=== PATIENT | female | born 1970 | race African-American/Black ===

== ENCOUNTER 2016-11-10 02:37 | Inpatient (IN) | payer OTHER, MEDICARE ==
[~2016-11-10] VITALS: Ht 151.1 cm; Wt 68.0 kg
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
--- NOTE | 2016-11-10 03:10 | NUR ---
PATIENT EVALUATED BY MD GUERIN.
--- NOTE | 2016-11-10 03:30 | NUR ---
LABS DRAWN VIA RCW PORT. DEACCESSED AFTER LAB DRAW,
[2016-11-10 04:00] LABS: ABSOLUTE BASOPHIL COUNT 0 /CUMM (0.0-0.2); ABSOLUTE EOSINOPHIL COUNT 0 /CUMM (0.0-0.7); ABSOLUTE GRANULOCYTE CT 8.6 /CUMM (1.4-6.5); ABSOLUTE LYMPH COUNT 3.5 /CUMM (1.2-3.4); ABSOLUTE MONOCYTE COUNT 0.1 /CUMM (0.10-0.60); BASOPHIL % 0.4 % (0.0-2.0); EOSINOPHIL % 0.3 % (0-5); HEMATOCRIT 32.2 % (37-47); MEAN CORPUSCULAR HGB CONC 33.2 G/DL (33.0-37.0); MEAN CORPUSCULAR VOLUME 99.4 FL (81.0-99.0); MEAN PLATELET VOLUME 7.7 FL (7.4-10.4); PLATELET COUNT 222 /CUMM (130-400); RBC DISTRIBUTION WIDTH 14.9 % (11.5-14.5); RED BLOOD CELL CT 3.24 /CUMM (4.20-5.40); WHITE BLOOD CELL COUNT 12.3 /CUMM (4.8-10.8)
[2016-11-10 04:01] LABS: GRANULOCYTE % 69.9 % (42.2-75.2)
--- NOTE | 2016-11-10 05:01 | NUR ---
PATIENT RESTING COMFORTABLY ON STRETCHER W/ FAMILY AT BEDSIDE. PATIENT REMAINS UNABLE TO OBTAIN URINE SPECIMEN AT THIS TIME. SITTER REMAINS W/ PATIENT.
--- NOTE | 2016-11-10 06:58 | NUR ---
PATIENT CONTINUES TO SLEEP AT THIS TIME. FAMILY REMAINS AT BEDSIDE. SITTER REMAINS W/ PATIENT.
--- NOTE | 2016-11-10 07:30 | NUR ---
ASSUMED CARE, EATING BREAKFAST, SITTER IN ATTENDANCE.
--- NOTE | 2016-11-10 08:40 | NUR ---
URINE TOX SCREEN SENT, (URINE TRIO).
--- NOTE | 2016-11-10 09:00 | NUR ---
PT AND VISITOR AWARE OF WAIT FOR CRISIS CONSULT.
--- NOTE | 2016-11-10 12:48 | NUR ---
MEDICATED FOR PAIN "ALL OVER" WITH PERCOCET 5 MG. PO.
--- NOTE | 2016-11-10 13:15 | NUR ---
PT STANDS AND PIVOTS WITH ASSIST TO WHEELCHAIR FOR CHANGING AND WANDING
--- NOTE | 2016-11-10 13:44 | NUR ---
PT INCREASING IN FRUSTRATION DUE TO EXTREMELY HIGH VOLUME IN ED AND WITH PSYCHIATRIC PATIENTS NEEDING CONSULTS AND THAT SHE HAS NOT BEEN SEEN YET. BOTH CRISIS CLINICIANS AWARE OF HER CONCERNS
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
[2016-11-10] MEDS ORDERED: DIAZEPAM5 M1 PO (16:26)
[2016-11-10] MEDS ORDERED: BACLOFEN10 M1 PO (16:26)
[2016-11-10] MEDS ORDERED: CARISOPRODOL350 M1 (16:27)
[2016-11-10] MEDS ORDERED: PREDNISONE10 M2 PO (16:27)
[2016-11-10] MEDS ORDERED: VITAMIN B-121000 MC3 PO (16:28)
[2016-11-10] MEDS ORDERED: VITAMIN D250000 UNIT PO (16:28)
[2016-11-10] MEDS ORDERED: OXYCODONE-ACET1 EACH PO (16:28)
[2016-11-10] MEDS ORDERED: ZOLPIDEM TARTRA10 M1 PO (16:28)
[2016-11-10] MEDS ORDERED: AMLODIPINE BESYL5 M1 PO (16:29)
[2016-11-10] MEDS ORDERED: TYSABRI300 MG/15 IV (16:30)
--- NOTE | 2016-11-10 16:53 | NUR ---
PHARMACY CALLED FOR VITAMIN D
--- NOTE | 2016-11-10 17:01 | NUR ---
ATTEMPTED TO GIVE PT VITAMIN D PER EMAR, PT SLEEPING QUIETLY AT THIS TIME, WILL ATTEMPT AGAIN WHEN PT IS AWAKE
--- NOTE | 2016-11-10 17:30 | NUR ---
PT NOT MEDICATED WITH VITAMIN D, STATES THAT SHE TAKES 5000U ONCE PER WEEK AND LAST DOSE WAS YESTERDAY. PT INFORMED OF PLAN TO GO DOWN TO [facility]PS SHORTLY ONCE REPORT HAS BEEN GIVEN
--- NOTE | 2016-11-10 17:37 | NUR ---
REPORT GIVEN TO RECEIVING RN AND DISTRIBUTION CALLED
[2016-11-10 18:24] VITALS: BP 128/81
[2016-11-10 19:51] VITALS: BP 138/89
--- NOTE | 2016-11-10 21:29 | NUR ---
PT HAS BEEN VISIBLE IN THE COMMUNITY INTERACTING WITH PEERS AND STAFF. PT SEEMS A LITTLE UNEASY ASKING A LOT OF QUESTIONS ABOUT UNIT. PT DID NOT ATTEND GROUP WRAPUP MEETING. PT OFFERS NO COMPLAINTS AT THIS TIME. PT IS IN A STABLE MOOD AND DENIES SI THOUGHTS AT THIS TIME.
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
--- NOTE | 2016-11-11 05:37 | NUR ---
PT APPEARED TO SLEEP WELL AFTER PRNs VICODIN 5 AND TRAZADONE 50 AT 2300.
[2016-11-11 08:10] VITALS: BP 143/105
[2016-11-11 12:06] VITALS: BP 118/96
--- NOTE | 2016-11-11 12:58 | SOCIAL WORKER PROG NOTE PSYCH ---
Social Work Progress Note Progress Note SW met with patient for the first time today. Patient presented somewhat irritable, tearful at times and reporting ongoing feelings of hopelessness, helplessness and sadness. Patient shared a great amount with this marketing underwriter about current and past family discord that has ultimately lead up to this admission and thoughts of SI. Patient reports that she has experienced numerous losses in her life and feels that things just won't get any better. Patient has a lengthy hx of medical issues that also impact her mental health and make her feel hopeless. Patient reports that her partner, Flaca Ayon, resides with her and is her primary support/distribution center administrator. Patient reports that she feels badly that Hope has to take care of her and she does not feel like a good partner to [facility]. Patient reports that recently she was attending OP treatment at [facility] and was attending their weekly anxiety group. She wishes to continue in this group going forward and does not believe she can manage IOP due to her medical conditions.
--- NOTE | 2016-11-11 13:57 | History & Physical ---
General Information and HPI MD Statement: I have seen and personally examined JESS BALTAZAR and documented this H&P. The patient is a 46 year old F who presented with a patient stated chief complaint of severe depression and suicidal ideation.. Source of Information: patient Exam Limitations: clinical condition (COMPLICATED HISTORY) History of Present Illness: The patient is a 46 yo female with h/o MS, depression, bipolar disorder, PTSD who presented in the ED with complaint of increased depression and suicidal ideation. She stated that she has had significant increase in spasm and thus increase in her usual neurologic medications (sees Neurology in [place]) including Baclofen, Valium, Soma, etc. She describes numerous stressors, including financial difficulties. At the time of my exam she appeared frustrated as she had not received all of her usual medication. She had been placed on a Prednisone taper by Neurology and took 40 mg yesterday and 30 mg today as per her taper schedule. She recently had Baclofen increased to qid (was tid on bottle). Also taking Soma, Valium, Ambien, B12, & Vit D. She does have some chronic abdominal pain (has had multiple surgeries) that is not significantly different than usual. Denies dyspnea, chest pain, palpitations , or significant change in her neurologic status. She was in her wheelchair at the time of my exam. Her prior MS care had been with Neurologist here ([facility] ), however now is seen in [place] where she lives. Allergies/Medications Allergies: Coded Allergies: Penicillins (Intermediate, RASH 11/10/16) lamotrigine (Intermediate, RASH 11/10/16) silver (From TEGADERM AG MESH) (RASH STAINS SKIN 11/10/16) talc (RASH, STAINS SKIN PER PT 11/10/16) Home Med list Baclofen 10 MG TABLET 1 TAB PO 4 TIMES/DAY PRN MUSCLE SPASMS (Reported) Cyanocobalamin (Vitamin B-12) 1,000 MCG TABLET 1 TAB PO DAILY SUPPLEMENT ( Reported) Diazepam 5 MG TABLET 1 TAB PO BID PRN MUSCLE SPASMS (Reported) Ergocalciferol (Vitamin D2) (Vitamin D2) 50,000 UNIT CAPSULE 1 CAP PO QSUN SUPPLEMENT (Reported) Natalizumab (Tysabri) (Unknown Strength) VIAL (Unknown Dose) IV Q4W MS ( Reported) Oxycodone HCl/Acetaminophen (Oxycodone-Acetaminophen 5-325) 5 MG-325 MG TABLET 1 TAB PO TIDPRN PRN PAIN (Reported) Prednisone (Unknown Strength) TABLET (Unknown Dose) PO AD STEROID TAPER ( Reported) Zolpidem Tartrate 10 MG TABLET 1 TAB PO QPM SLEEP (Reported) Compliance With Home Meds: GOOD Past History Travel History Traveled to [place] past 21 day No Medical History Neurological: multiple sclerosis EENT: NONE Cardiovascular: NONE Respiratory: asthma, obstructive sleep apnea (WAS ON CPAP-GETTING MOUTH ROBERT) Gastrointestinal: GERD, irritable bowel syndrome Hepatic: NONE Renal: NONE Musculoskeletal: chronic back pain, sciatica, DEGENERATIVE DISC DISEASE BULGING CERVICAL SPINE BURSITIS HIPS Psychiatric: anxiety, bipolar disease, depression, insomnia, substance abuse, PTSD Endocrine: hypothyroidism Blood Disorders: LEUKOCYTOSIS Cancer(s): NONE SUPERINTENDENT NONSELLING/Reproductive: miscarriage History of MRSA: No History of VRE: No History of CDIFF: No Isolation History: Standard Surgical History Surgical History: appendectomy, tubal ligation, ECTOPIC , TEMPORARY COLOSTOMY Past Family/Social History Family History Relations & Conditions if any MOTHER (MOTHER - NON-SMALL CELL LUNG CA, COPD). . FATHER (FATHER WITH H/O DM- ). . SISTER (SISTER WITH CIRRHOSIS). Psychosocial History Where do you live? Home Primary Language: Vietnamese ETOH Use: denies use Illicit Drug Use: marijuana (MEDICAL MARIJUANA CARD) Functional Ability Ambulation: WHEELCHAIR Employment History Employment Disability Profession/Employer N/A Review of Systems Review of Systems Constitutional: Denies: no symptoms. EENTM: Denies: no symptoms. Cardiovascular: Denies: no symptoms. Respiratory: Denies: no symptoms. GI: Reports: abdominal pain (MILD PAIN/IBS), constipation. Genitourinary: Denies: no symptoms. Musculoskeletal: Reports: back pain. Skin: Denies: no symptoms. Neurological/Psychological: Reports: anxiety, depressed. Hematologic/Endocrine: Denies: no symptoms. Immunologic/Allergic: Denies: no symptoms. Exam & Diagnostic Data Last 24 Hrs of Vital Signs/I&O Vital Signs Date Time Temp Pulse Resp B/P Pulse O2 O2 Flow FiO2 Ox Delivery Rate 11/12 0747 96.8 66 150/96 11/11 1942 96.5 78 143/98 11/11 1605 77 134/89 11/11 1206 71 118/96 Physical Exam General Appearance Alert, Oriented X3, Cooperative, No Acute Distress Skin No Rashes, No Breakdown, No Significant Lesion HEENT Atraumatic, PERRLA, EOMI, Mucous Membr. moist/pink Neck Supple, No JVD, No thryomegaly, +2 Carotid Pulse wo Bruit, No LAD Cardiovascular Regular Rate, Normal S1, Normal S2, No Murmurs Lungs Clear to Auscultation, Normal Air Movement Abdomen Normal Bowel Sounds, Soft, MINIMAL TENDER W/O GUARD/RAGHU Neurological Exam Findings: Normal Speech (DIMINISHED MOTOR UE/LE MS), Cranial Nerves 3-12 NL Cranial Nerves II through XII: INTACT Extremities No Clubbing, No Cyanosis, No Edema, Normal Pulses, No Tenderness/ Swelling Vascular Normal Pulses, Pulses Symmetrical Last 24 Hrs of Labs/Tam: Laboratory Tests 11/10/16 2300: Urine Test NEGATIVE 11/10/16 0830: Urine Opiates Screen < 100.00, Methadone Screen < 40, Barbiturate Screen < 60, Ur Phencyclidine Scrn < 6.00, Amphetamines Screen < 100, U Benzodiazepines Scrn > 800 H, Urine Cocaine Screen < 50, Urine Cannabis Screen > 80.00 H Assessment/Plan Assessment: #Depression/Suicidal Ideation- patient presents with above complaints. Has had increasing doses of medication for muscle spasms secondary to MS (Valium, etc.) that may be contributing along with social stressors. Plan: Admit to [facility]/Psychiatry for evaluation. #Multiple Sclerosis- patient describes increased spasticity which has lead to escalation of doses of meds including Baclofen increased to quid, addition of Valium and Soma. Later are most likely contributing to her depression symptoms. Her Neurologist is in [place] (she has had previous care here in [facility]). Plan: Will continue Baclofen 10 mg qid. Will have to balance other meds as per psych. May need neurology input. #GERD/Irritable Bowel- patient has minimal discomfort at present. Uses Aciphex prn (states not using recently). Has had multiple abdominal surgeries in past and did at one time have temporary colostomy after nicked bowel during a procedure. Plan: Will follow. #Obstructive Sleep Apnea- patient states she was diagnosed with this, however not using CPAP. She is being evaluated for mouth piece alternative for treatment. She does not describe severe symptoms at present. Plan: To be followed up as OP. As Ranked By This Provider Problem List: 1. Depression 2. Bipolar disorder, unspecified 3. Multiple sclerosis 4. GERD (gastroesophageal reflux disease) 5. Obstructive sleep apnea Miscellaneous Miscellaneous Documentation Attending Case Discussed With: SIRI HOSKINS MD Primary Care Physician: PAULA DONOVAN MD Patient sees these Specialists NEUROLOGY IN [place] Level of Patient Care: JULIET D[place] Consults Needed: Consulting Physician: NONE Attending MD Review Statement Attending Statement Attending MD Statement: examined this patient, discussed with nursing, amended to note Attending Assessment/Plan: The patient was seen and examined on 11/11/16.
--- NOTE | 2016-11-11 13:57 | NUR ---
PT DID NOT ATTEND GROUPS THIS MORNING. SHE WAS IRRITABLE AND REPORTED SHE WAS COLD AND IN PAIN.PTS GAIT IS UNSTEADY AND SHE WAS GIVEN A WALKER AND SHE REQUESTED A WHEELCHAIR WHICH SHE WAS GIVEN. PT IS VERY FOCUSED ON HER MEDS AND NEEDED REASSURANCE THAT WE WOULD GET HER MEDS CORRECT TODAY. SHE CALLED HER PARTNER WHO GAVE STAFF A HOME LIST OF MEDS. PT SEEN AND EXAMINED BY DR CANNON FOR H&P. PT DENIED SUICIDAL THOUGHTS AT THIS TIME. SHE IS IN GROUP AT THIS TIME
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
[2016-11-11 16:05] VITALS: BP 134/89
[2016-11-11 19:42] VITALS: BP 143/98
--- NOTE | 2016-11-11 21:47 | NUR ---
PT IS STABLE WITH FULL RANGE OF AFFECT. PT IS EASILY IRRITATED WITH THINGS SUCH HER FOOD NOT BEING COOKED CORRECTLY AND HER SIGNIFICANT OTHER HAVING TO CALL PRIOR TO VISITING DURING NON-VISITING HOURS DUE TO HER WORK SCHEDULE. OTHERWISE PT HAS BEEN APPROPRIATE TO THE UNIT AND COMPLIANT AND COOPERATIVE. PT IS CONSTANTLY APPROACHING THE NURSES STATION DEMANDING THINGS SUCH BLANKETS, ECT. VS ARE STABLE AND PT DENIES SI/HI TO THIS MHW.
--- NOTE | 2016-11-12 04:02 | NUR ---
PT RECEIVED MAALOX AT 0325 FOR INDIGESTION. PT APPEARED TO SLEEP.
[2016-11-12 07:47] VITALS: BP 150/96
--- NOTE | 2016-11-12 11:09 | NUR ---
DR CANNON NOTIFIED OF PTS C/O CONSTIPATION AND NAUSEA. HE IS AWARE OF PTS HX AND STATED HE WILL ADJUST HER MEDICATION ORDERS. HE DOES NOT RECOMMEND XRAY AT THIS TIME
[2016-11-12 12:37] VITALS: BP 140/97
--- NOTE | 2016-11-12 13:58 | CP SOUTH PROGRESS NOTE PSYCH ---
Psych (Inpt) Progress Note Progress Note Progress Note: I discussed this patient's progress to date, current mental status, treatment process in the context of the treatment plan, and discharge planning with staff/ team in the daily morning inpatient team meeting. I also met with the patient myself in individual session. A total of 50 minutes was spent with the patient with more than 50% spent in counseling and/or coordination of care. OBJECTIVE: Current Medications Sig/Charles Start time Last Medication Dose Route Stop Time Status Admin Acetaminophen 650 MG Q6P PRN 11/10 1545 AC PO Al Hydroxide/Mg 30 ML .STK-MED ONE 11/12 0319 DC Hydroxide PO 11/12 0320 Al Hydroxide/Mg 30 ML Q4-6 PRN PRN 11/10 1545 AC 11/12 Hydroxide PO 0325 Aripiprazole 5 MG 0800 11/12 0800 AC 11/12 PO 1006 Baclofen 10 MG 4 TIMES/DAY 11/11 1400 AC 11/12 PO 1006 Bisacodyl 5 MG DAILY PRN 11/12 1115 AC PO Carisoprodol 350 MG Q8P PRN 11/10 1545 AC PO Cholecalciferol 1,000 IU DAILY 11/11 1328 AC PO Cholecalciferol 400 IU DAILY 11/10 1540 DC PO Cyanocobalamin 1,000 MCG DAILY 11/11 1327 AC 11/12 PO 1007 Diazepam 5 MG Q6P PRN 11/10 1545 AC 11/11 PO 2222 Docusate Sodium 100 MG TID 11/12 1600 AC PO Docusate Sodium 100 MG BID 11/12 1109 DC 11/12 PO 1236 Escitalopram Oxalate 10 MG 00 11/12 1315 AC PO Magnesium Hydroxide 30 ML AT BEDTIME PRN 11/10 1545 AC 11/12 PO 1008 Ondansetron HCl 4 MG Q6-PRN PRN 11/12 1315 AC PO Oxycodone/ 1 TAB Q6P PRN 11/10 1545 AC 11/11 Acetaminophen PO 1720 Polyethylene Glycol 17 GM 11/11 1830 DC 11/12 PO 1006 Prednisone 10 MG 0800 11/15 0800 AC PO 11/16 0801 Prednisone 20 MG 0800 11/13 0800 AC PO 11/14 0801 Prednisone 30 MG DAILY 11/11 1000 DC 11/12 PO 11/12 1001 1007 Senna 187 MG AT BEDTIME 11/120 AC PO Trazodone HCl 50 MG AT BEDTIME 11/11 2200 DC 11/11 PO 2223 Trazodone HCl 50 MG AT BEDTIME NEED.. 11/10 1545 DC 11/10 PO 2304 Zolpidem Tartrate 10 MG AT BEDTIME 11/12 220 AC PO Vital Signs Date Time Temp Pulse Resp B/P Pulse O2 O2 Flow FiO2 Ox Delivery Rate 11/12 1237 75 140/97 11/12 0747 96.8 66 150/96 11/11 1942 96.5 78 143/98 11/11 1605 77 134/89 ASSESSMENT: Today I met the patient in a family meeting along with geriatric social work professor Radha and the patient's significant other, Flaca. Patient reports continuing depression and anxiety, although states she is no longer suicidal. Continues to harbor resentment and anger towards her neighbor, is unsure how she would behave in his presence. She identifies mood lability as one of her central problems. Was discontinued from lithium, apparently in November 2015 as per medication claim history. Complaining of continuing constipation. Difficulty sleeping last night, states that at home she uses Ambien, which has beem verified from medication claim history. States that she vomited this morning, does not know which if any of her medications were not ingested due to vomiting. She complains of some residual nausea, requests Zofran which has helped the past. We discussed starting Lexapro for depression and anxiety, Abilify for mood lability and racing thoughts. Patient has agreed to try these medications. Risks, benefits and side effects discussed with patient and her partner. I spoke with the patient's neurology/MS clinician, Berenice Haq APRN (tel: ) who states that Lexapro and Abilify would not interfere with her MS treatment. Ms Haq stated that in her last phone conversation with the patient, she seemed to have "racing thoughts." I placed a call to her psychiatrist, Dr. Hernandez at [facility], [phone], and left a message. His office states that he is out of the office today, and will call back tomorrow. Patient listed numerous upcoming medical appointments including: follow-up with her psychiatrist; evaluation for breast reduction for back pain; following up with a syrup filterer for osteopenia; scheduled MRI for lower extremities bilaterally; regularly scheduled Tysabri infusion on November 24. Patient signed a three-day paper this afternoon. Depression: 8/10; Anxiety: Normal 5/10 (with 10 the worst.) States anxiety is mostly related to pain. Denies suicidal ideation, homicidal ideation, auditory hallucinations, visual hallucinations, paranoid ideation. States and also believes that she will not kill herself. States although she is very angry with her neighbor, and does not intend to cause him harm, she is not sure how she would react if confronted by him. Speech is well articulated, goal-directed, average in rate, volume and tone. The patient understands the risks/benefits/side effects of the medication and is agreeable to continue taking them. PLAN: Low carbohydrate diet. Colace 3 times daily. Zofran as needed for nausea. Lexapro for depression and anxiety. Continue Abilify for mood stability and racing thoughts. Patient complains that she did not sleep last night, reinstate Ambien at bedtime for insomnia. Blood pressure somewhat elevated, continue to monitor. Continue with other current management as patient is improving. Continue to provide support and encouragement.
[2016-11-12 16:28] VITALS: BP 150/98
--- NOTE | 2016-11-12 16:42 | SOCIAL WORKER PROG NOTE PSYCH ---
Social Work Progress Note Progress Note Patient had family meeting today with this typewriter mechanic, Cesar Osborne APRN and patients partner Hope. Patient mostly discussed medical concerns during the meeting and reported that she is having a difficult time addressing her anxiety/ depression due to her thoughts being consumed over her medical concerns. Patient reported that she may consider putting in a 3 day paper today in order to discharge the hospital in the near future. Patient denied any thoughts of hurting herself today and stated that she has been working on ways that she can control her behavior/negative thoughts so that she does not react towards her neighbor in a threatful manner. Patient expressed her deisre to return to treatment at [facility]. She has been discharged from their program due to being admitted here and will need to complete a new evaluation with them. Her new intake is scheduled for 11/21/16 @ 8:30am with Kim Enriquez.
[2016-11-12 19:42] VITALS: BP 119/98
--- NOTE | 2016-11-12 21:26 | NUR ---
PT IS VISIBLE ON UNIT, MAKING PHONE CALLS AND INTERACTING WITH PEERS AT TIMES. MOSTLY STAYED IN BED. PT DID ATTEND WRAP UP MEETING BUT WAS VERY DISRUPTIVE, INTERUPTING PEERS WHILE THEY WERE SHARING. WHEN REDIRECTED PT BECAME VERY ARGUMENTATIVE AND ENTITLED. PT CONSTANTLY HAS A COMPLAINT REGARDING VARIOUS ASPECTS ABOUT THE UNIT(SHAVING, FOOD, TEMPERATURE OF UNIT, ETC). COOPERATIVE WITH STAFF. NO SI REPORTED. PT HAS A STABLE MOOD AND IRRITABLE AFFECT.
--- NOTE | 2016-11-13 04:17 | NUR ---
SLEPT WELL. REPORTS SMALL RESULTS FROM FLEETS ENEMA. REQUEST ANOTHER ONE FOR TODAY.
[2016-11-13 07:46] VITALS: BP 155/98
--- NOTE | 2016-11-13 11:25 | SOCIAL WORKER PROG NOTE PSYCH ---
Social Work Progress Note Progress Note Patient to discharge the hospital today. Patient denies SI/HI/AH/VH at present and is eager to discharge home today. Patient continues to report concern with bowel movement and feels more comfortable at home then in the hospital. Patients partner will pick her up today and they live together. Patient has agreed to return to treatment at [facility]. She has intake next 11/21/16 @ 8:30am with Kim Enriquez. Patient is aware and plans to attend.
[2016-11-13 11:38] VITALS: BP 123/80
[2016-11-13] MEDS ORDERED: DOCUSATE SODIU100 M3 PO (11:59)
--- NOTE | 2016-11-13 11:59 | CP SOUTH PROGRESS NOTE PSYCH ---
Psych (Inpt) Progress Note Progress Note Progress Note: I discussed this patient's progress to date, current mental status, treatment process in the context of the treatment plan, and discharge planning with staff/ team in the daily morning inpatient team meeting. I also met with the patient myself in individual session. A total of 30 minutes was spent with the patient with more than 50% spent in counseling and/or coordination of care. SUBJECTIVE: "I'm happy to leave today." OBJECTIVE: Current Medications Sig/Charles Start time Last Medication Dose Route Stop Time Status Admin Acetaminophen 650 MG Q6P PRN 11/10 1545 AC PO Al Hydroxide/Mg 30 ML Q4-6 PRN PRN 11/10 1545 AC 11/12 Hydroxide PO 0325 Aripiprazole 5 MG 0800 11/12 0800 AC 11/13 PO 0857 Baclofen 10 MG 4 TIMES/DAY 11/11 1400 AC 11/13 PO 0857 Bisacodyl 5 MG DAILY PRN 11/12 1115 AC PO Carisoprodol 350 MG Q8P PRN 11/10 1545 AC PO Cholecalciferol 1,000 IU DAILY 11/11 1328 AC PO Cyanocobalamin 1,000 MCG DAILY 11/11 1327 AC 11/13 PO 0857 Diazepam 5 MG Q6P PRN 11/10 1545 AC 11/13 PO 0857 Docusate Sodium 100 MG TID 11/12 1600 AC 11/13 PO 0857 Docusate Sodium 100 MG BID 11/12 1109 DC 11/12 PO 1236 Escitalopram Oxalate 10 MG 0800 11/12 1315 AC 11/13 PO 1100 Magnesium Hydroxide 30 ML AT BEDTIME PRN 11/10 1545 AC 11/12 PO 1008 Ondansetron HCl 4 MG Q6-PRN PRN 11/12 1315 AC PO Oxycodone/ 1 TAB Q6P PRN 11/10 1545 AC 11/11 Acetaminophen PO 1720 Prednisone 10 MG 0800 11/15 0800 AC PO 11/16 0801 Prednisone 20 MG 0800 11/13 0800 AC 11/13 PO 11/14 0801 0857 Senna 187 MG AT BEDTIME 11/12 2200 AC 11/12 PO 2153 Sodium Phosphate 1 UNIT ONCE ONE 11/13 1100 DC DC 11/13 1101 Sodium Phosphate 1 UNIT ONCE ONE 11/12 1600 DC 02/15 DC 11/12 1601 1854 Trazodone HCl 50 MG AT BEDTIME 11/110 DC 11/11 PO 2223 Zolpidem Tartrate 10 MG AT BEDTIME 11/12 2199 DC PO Zolpidem Tartrate 10 MG AT BEDTIME 11/120 AC 11/12 PO 2156 Vital Signs Date Time Temp Pulse Resp B/P Pulse O2 O2 Flow FiO2 Ox Delivery Rate 11/13 1138 93 123/80 11/13 0746 96.7 73 155/98 11/12 1942 96.7 83 119/98 11/12 1628 75 150/98 11/12 1237 75 140/97 ASSESSMENT: Patient reports some residual sadness, however denies suicidal or homicidal ideation. States that she feels safe and ready for discharge. A second Fleet enema was ordered for this morning, as the patient states she had a small bowel movement after yesterday's Fleet enema, however still feels constipated. Today she is ambulating independently, without assist of wheelchair or walker, with slow but steady gait. Reports tolerating her medications well, without complaint. I spoke with the patient's psychiatrist at [facility], Dr. Hernandez, who did not object to patient being prescribed Lexapro for depression and Abilify for mood stabilization. He believes there is an element of personality disorder involved. He had prescribed [place] in the past, however the patient did not take it. States that she is often nonadherent to treatment. States that she can return to attend IOP at [facility]. Depression:4/10; Anxiety:0/10 (with 10 the worst.) Denies suicidal ideation, homicidal ideation, auditory hallucinations, visual hallucinations, paranoid ideation. Patient states and also believes that she will not kill herself, or harm anyone else. Reports that her sleep is not good, however at her baseline. Her appetite is good and states she is eating too much while here in the hospital. Speech is well articulated, goal-directed, average in rate, volume and tone. The patient understands the risks/benefits/side effects of the medication and is agreeable to continue taking them. PLAN: Discharge today. Will follow-up at [facility] and with her doctors. Continue with current management as patient is improving. Continue to provide support and encouragement.
[2016-11-13] MEDS ORDERED: LEXAPRO10 M1 PO (12:00)
[2016-11-13] MEDS ORDERED: ABILIFY5 M1 PO (12:01)
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
--- NOTE | 2016-11-13 13:39 | NUR ---
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 HAS + UNDERSTANDING OF MEDICATION REGIMENT AND MOTIVATION FOR DISCHARGE FOLLOW-UP TREATMENT AND PLANNING, IDENTIFIED + SUPPORT SYSTEMS AND FEELING READY AND PREPARED FOR DISCHARGE TODAY, TEAM ONBOARD WELL. PT RESOURCE GUIDE REVIEWED ALONG WITH PERTINENT NUMBER I.E., [facility], [facility], SUICIDE HOTLINE, ETC. INFORMATION PACKETS RE: SI AND BIPOLAR GIVEN TO PT WELL.
== END 2016-11-13 13:30 | DRG 885 ==
LOC: ERH 02:37 → ERHI 17:16 → CP SOUTH 17:16
PROVIDERS: Nurse Practitioner Psychiatric/Mental Health; Pediatrics; ADMIT Psychiatry & Neurology Psychiatry
DX: F31.9 Bipolar disorder, unspecified (principal); G35 Multiple sclerosis; F43.10 Post-traumatic stress disorder, unspecified; J45.909 Unspecified asthma, uncomplicated; K21.9 Gastro-esophageal reflux disease without esophagitis; K58.9 Irritable bowel syndrome, unspecified; M54.9 Dorsalgia, unspecified; E03.9 Hypothyroidism, unspecified; D72.829 Elevated white blood cell count, unspecified
CPT/HCPCS: 80307; 81025; 93005; 93010; G0480; J3101; J3360; J7512

== ENCOUNTER 2017-01-06 16:29 | Emergency (ER) | payer OTHER, MEDICARE ==
[~2017-01-06] VITALS: Ht 149.9 cm; Wt 68.5 kg
[~2017-01-06 16:29] MED LIST: ABILIFY5 M1 PO; AMLODIPINE BESYL5 M1 PO; BACLOFEN10 M1 PO; CARISOPRODOL350 M1; DIAZEPAM5 M1 PO; DOCUSATE SODIU100 M3 PO; LEXAPRO10 M1 PO; OXYCODONE-ACET1 EACH PO; PREDNISONE10 M2 PO; TYSABRI300 MG/15 IV; VITAMIN B-121000 MC3 PO; VITAMIN D250000 UNIT PO; ZOLPIDEM TARTRA10 M1 PO
--- NOTE | 2017-01-06 18:04 | ED CARDIAC/CP/PALPITATIONS ---
History of Present Illness General Chief Complaint: Chest Pain Stated Complaint: PT IS HAVING CHEST PAIN AND FINGER TINGLING Source: patient Exam Limitations: no limitations Vital Signs & Intake/Output Vital Signs & Intake/Output Vital Signs Date Time Temp Pulse Resp B/P Pulse O2 O2 Flow FiO2 Ox Delivery Rate 01/06 2119 155/99 01/06 2118 96.2 60 18 156/92 99 Room Air 01/06 1824 97.8 57 20 144/81 99 Room Air 01/06 1646 97.9 60 20 144/86 99 Room Air Allergies Coded Allergies: Penicillins (Intermediate, RASH 01/06/17) duloxetine (From CYMBALTA) (Intermediate, GERD 01/06/17) gabapentin (Intermediate, "STOMACH ISSUES" 01/06/17) lamotrigine (Intermediate, RASH 01/06/17) silver (From TEGADERM AG MESH) (RASH STAINS SKIN 01/06/17) talc (RASH, STAINS SKIN PER PT 01/06/17) Triage Note: TRIAGE: PT TO ER C/C PAIN TO MID CHEST WITH RADIATION INTO RT CHEST. ONSET THURSDAY MORNING, CONSTANT SINCE ONSET. PT ALSO COMPLAINS OF NUMBNESS AND TINGLING DOWN THE RT ARM INTO PINKY AND RING FINGER. ALSO COMPLAINS OF RT HIP TO PELVIS AND DOWN LEG PAIN. ALSO COMPLAINS OF HEAD PAIN. PT TEARFUL AT TRIAGE. HAD EKG DONE IN PONCE PRIOR TO TRIAGE. Triage Nurses Notes Reviewed? yes Onset: Abrupt Duration: day(s):, continues in ED Timing: single episode today Quality/Severity: aching Location: substernal Radiation: no radiation Activities at Onset: none HPI: Patient presents for evaluation of a severe constant right chest pain that began on Thursday. Patient states in addition she is having right arm and hand tingling and numbness. (KARINA VASQUEZ,TAY Torres) Reconcile Medications Amlodipine Besylate (Norvasc) 5 MG TABLET 1 TAB PO DAILY HIGH BLOOD PRESSURE Aripiprazole (Abilify) 5 MG TABLET 5 MG PO 0800 STABLE MOODS Baclofen 10 MG TABLET 1 TAB PO 4 TIMES/DAY PRN MUSCLE SPASMS (Reported) Cyanocobalamin (Vitamin B-12) 1,000 MCG TABLET 1 TAB PO DAILY SUPPLEMENT ( Reported) Diazepam 5 MG TABLET 1 TAB PO BID PRN MUSCLE SPASMS (Reported) Ergocalciferol (Vitamin D2) (Vitamin D2) 50,000 UNIT CAPSULE 1 CAP PO QSUN SUPPLEMENT (Reported) Escitalopram Oxalate (Lexapro) 10 MG TABLET 10 MG PO 0800 Depression and anxiety Magnesium Citrate (Unknown Strength) SOLUTION (Unknown Dose) PO AD PRN GI ( Reported) Natalizumab (Tysabri) (Unknown Strength) VIAL (Unknown Dose) IV Q4W MS ( Reported) Oxycodone HCl/Acetaminophen (Oxycodone-Acetaminophen 5-325) 5 MG-325 MG TABLET 1 TAB PO TIDPRN PRN PAIN (Reported) Polymyxin B Sulf/Trimethoprim (Polymyxin B-Tmp Eye Drops) 10,000 UNIT-1 MG/ML DROPS 1 GTT OPH 4 TIMES/DAY AFFECTED EYE(S) (Reported) Zolpidem Tartrate 10 MG TABLET 1 TAB PO QPM SLEEP (Reported) (TRACY VASQUEZ,KERON Arshad) Past History Travel History Traveled to [place] past 21 day No Medical History Any Pertinent Medical History? 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 . FATHER (FATHER WITH H/O DM- ). . SISTER (SISTER WITH CIRRHOSIS). Hx Contributory? No (KARINA VASQUEZ,TAY Torres) Review of Systems Review of Systems Constitutional: Reports: no symptoms. EENTM: Reports: no symptoms. Respiratory: Reports: no symptoms. Cardiovascular: Reports: chest pain. GI: Reports: no symptoms. Genitourinary: Reports: no symptoms. Musculoskeletal: Reports: see HPI. Skin: Reports: no symptoms. Neurological/Psychological: Reports: no symptoms. Hematologic/Endocrine: Reports: no symptoms. Immunologic/Allergic: Reports: no symptoms. All Other Systems: Reviewed and Negative (KARINA VASQUEZ,TAY Torres) Physical Exam Physical Exam Cardiovascular: see below Comments: Gen.: Well-nourished, well-developed, no acute respiratory distress. Head: Normocephalic, atraumatic. Eyes: Normal inspection bilaterally Ears: Normal inspection bilaterally Nose: Normal inspection Throat/mouth : Moist mucosa Neck: Supple, full range of motion, no goiter Heart: Regular rate and rhythm, no murmurs rubs or gallops Lungs: Clear to auscultation bilaterally with normal air entry Chest: Nontender Back: Normal range of motion Abdomen: Soft, nontender, nondistended, normal bowel sounds Extremities: Normal range of motion grossly, equal radial pulses, no cyanosis clubbing or edema Neurologic: Cranial nerves grossly intact, speech is clear Skin: warm and dry Psychiatric: Calm, cooperative, no apparent delusions or hallucinations, crying at times secondary to pain. (KARINA VASQUEZ,TAY Torres) Core Measures ACS in differential dx? Yes ASA ordered for poss ACS? 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 Unfortunately IV access could not be obtained so the CAT scan has been placed on hold and an ultrasound has been ordered. (KARINA VASQUEZ,TAY Torres) Plan of Care: Orders Procedure Date/time Status US-DEEP VESSEL DOPPLER 01/06 192 Active Telemetry/Assistant Grocery 01/06 180 Active TROPONIN LEVEL 01/06 180 Complete MAGNESIUM 01/06 180 Complete D-DIMER 01/06 180 Complete CBC WITHOUT DIFFERENTIAL 01/06 180 Complete BASIC METABOLIC PANEL 01/06 180 Complete CTA CHEST 01/06 180 Active EKG 01/06 1631 Active Current Medications Sig/Charles Start time Last Medication Dose Stop Time Status Admin Morphine Sulfate 4 MG ONCE ONE 01/06 1945 UNVr (Morphine) 01/06 1946 Laboratory Tests 01/06/171821: Anion Gap 9, Estimated GFR 59 L, BUN/Creatinine Ratio 12.0, Glucose 80, Calcium 9.5, Magnesium 1.7, Troponin I < 0.01, D-Dimer < 200, CBC w Diff NO MAN DIFF REQ , RBC 3.58 L, MCV 99.1 H, MCH 33.0 H, RDW 14.9 H, MPV 7.8, Gran % 31.0 L, Lymphocytes % 61.4 H, Monocytes % 5.3, Eosinophils % 1.5, Basophils % 0.8, Absolute Granulocytes 2.7, Absolute Lymphocytes 5.3 H, Absolute Monocytes 0.5, Absolute Eosinophils 0.1, Absolute Basophils 0.1, PUBS MCHC 33.4 Diagnostic Imaging: Viewed by Me: Radiology Read. Discussed w/RAD: Radiology Read. CXR Impression: PATIENT: JESS BALTAZAR PRESENT AGE: 46 PATIENT ACCOUNT NO: [id number] : 68 LOCATION: [facility] ORDERING PHYSICIAN: KERON NAIR MD SERVICE DATE: 01/06/17 EXAM TYPE: RAD - XRY-CHEST XRAY, PA AND LATERAL EXAMINATION: XR CHEST CLINICAL INFORMATION: Evaluate for wide mediastinum. COMPARISON: None TECHNIQUE: 2 views of the chest were obtained. FINDINGS: Mediastinal contours are normal. A right-sided chest port device is in place. The cardiac silhouette is normal in contour. No airspace opacities or pleural effusions are seen. No acute osseous abnormality is visible. IMPRESSION: Clear lungs. No abnormal widening of the mediastinum. No acute radiographic process. DICTATED BY: KERON CASTAÑEDA MD DATE/TIME DICTATED: 01/06/172152 JAVA JSF DEVELOPER:YAN DATE/TIME TRANSCRIBED:01/06/172152 CONFIDENTIAL, DO NOT COPY WITHOUT APPROPRIATE AUTHORIZATION. <Electronically signed in Other Vendor System> SIGNED BY: KERON CASTAÑEDA MD 01/06/172157 Comments: Unable to obtain IV access. Ultrasound does not show any evidence of a dissection. There is no different in blood pressure reaching right and left arm. Patient has been on Norvasc in the past for her blood pressure however she has been off of it since her primary care physician wanted her neurologist prescribing and her neurologist stated that he did not treat high blood pressure. (KERON NAIR MD) Departure Departure Condition: Stable Departure Forms: Customer Survey General Discharge Information (KARINA VASQUEZ,TAY Torres) Departure Disposition: HOME OR SELF CARE Clinical Impression Primary Impression: Chest pain, unspecified Secondary Impressions: Hypertension Referrals: Cira RICHARDSON MD UNKNOWN (PCP/Family) Additional Instructions: TAKE AMLODIPINE EVERY DAY FOLLOW UP WITH DR. RICHARDSON RETURN FOR ANY CONCERNS Prescriptions: Current Visit Scripts Amlodipine Besylate (Norvasc) 1 TAB PO DAILY #30 TAB (KERON NAIR MD) Critical Care Note Critical Care Note Critical Care Time: non-applicable (KREON NAIR MD)
[2017-01-06] MEDS ORDERED: MAGNESIUM CITR296 ML PO (18:34)
[2017-01-06] MEDS ORDERED: POLYMYXIN B-TMP10 ML OPH (18:34)
[2017-01-06 18:35] LABS: ABSOLUTE BASOPHIL COUNT 0.1 /CUMM (0.0-0.2); ABSOLUTE EOSINOPHIL COUNT 0.1 /CUMM (0.0-0.7); ABSOLUTE GRANULOCYTE CT 2.7 /CUMM (1.4-6.5); ABSOLUTE LYMPH COUNT 5.3 /CUMM (1.2-3.4); ABSOLUTE MONOCYTE COUNT 0.5 /CUMM (0.10-0.60); BASOPHIL % 0.8 % (0.0-2.0); EOSINOPHIL % 1.5 % (0-5); HEMATOCRIT 35.4 % (37-47); MEAN CORPUSCULAR HGB CONC 33.4 G/DL (33.0-37.0); MEAN CORPUSCULAR VOLUME 99.1 FL (81.0-99.0); MEAN PLATELET VOLUME 7.8 FL (7.4-10.4); PLATELET COUNT 210 /CUMM (130-400); RBC DISTRIBUTION WIDTH 14.9 % (11.5-14.5); RED BLOOD CELL CT 3.58 /CUMM (4.20-5.40); WHITE BLOOD CELL COUNT 8.6 /CUMM (4.8-10.8)
--- NOTE | 2017-01-06 20:48 | ULTRASOUND REPORT ---
EXAMINATION: US DUPLEX UPPER EXTREMITY ARTERY/GRAFT LIMITED, RIGHT CLINICAL INFORMATION: 46-year-old female presenting with right chest and upper extremity pain associated with hypertension. COMPARISON: None TECHNIQUE: Duplex Doppler ultrasound color flow mapping was performed of the right subclavian axillary and brachial arteries. FINDINGS: Normal triphasic arterial flow is identified in the right subclavian, axillary, and brachial arteries. The waveforms and velocities are normal. No dissection flap, aneurysm, or intraluminal thrombus is identified. IMPRESSION: Patent proximal right upper extremity arteries with no evidence of a dissection flap, aneurysm, or occlusive disease.
[2017-01-06 21:19] VITALS: BP 155/99
--- NOTE | 2017-01-06 21:58 | RADIOLOGY REPORT ---
EXAMINATION: XR CHEST CLINICAL INFORMATION: Evaluate for wide mediastinum. COMPARISON: None TECHNIQUE: 2 views of the chest were obtained. FINDINGS: Mediastinal contours are normal. A right-sided chest port device is in place. The cardiac silhouette is normal in contour. No airspace opacities or pleural effusions are seen. No acute osseous abnormality is visible. IMPRESSION: Clear lungs. No abnormal widening of the mediastinum. No acute radiographic process.
[2017-01-06] MEDS ORDERED: NORVASC5 M1 PO (22:24)
== END 2017-01-06 22:32 ==
LOC: ERH 16:29
PROVIDERS: Emergency Medicine
DX: R07.9 Chest pain, unspecified (principal); I10 Essential (primary) hypertension; M79.601 Pain in right arm; R20.2 Paresthesia of skin; R20.0 Anesthesia of skin; G35 Multiple sclerosis; M54.30 Sciatica, unspecified side
CPT/HCPCS: 93005; 93010; 96372